=== PATIENT | female | born 1990 | race Caucasian/White ===

== ENCOUNTER 2017-11-27 18:45 | Emergency (ER) | payer MEDICAID ==
[2017-11-27 18:51] VITALS: Ht 182.9 cm
[2017-11-27 21:15] VITALS: BP 147/97
== END 2017-11-27 21:15 | disposition home or self-care (01) ==
LOC: ED 18:45
DX: S62.305A Unspecified fracture of fourth metacarpal bone, left hand, initial encounter for closed fracture (principal); S52.612A Displaced fracture of left ulna styloid process, initial encounter for closed fracture; V49.88XA Car occupant (driver) (passenger) injured in other specified transport accidents, initial encounter; Y93.I9 Activity, other involving external motion; Y92.413 State road as the place of occurrence of the external cause; Y99.8 Other external cause status
CPT/HCPCS: J1885